=== PATIENT | female | born 1935 | race Caucasian/White ===

== ENCOUNTER 2020-03-10 08:42 | Inpatient (IN) | payer MEDICAID ==
[~2020-03-10] VITALS: Ht 152.4 cm; Wt 56.7 kg
[2020-03-10] MEDS ORDERED: SODIUM CHLORIDE 0.9% 1000ML BAG (SEPSIS BOLUS) IV ONE (09:45)
[2020-03-10] MEDS ORDERED: VANCOMYCIN 1 G PREMIX 200 ML IV ONE (09:45)
[2020-03-10] MEDS ORDERED: PIPERACILLIN/TAZ 3.375G PREMIX 50 ML IV ONE (09:45)
[2020-03-10 10:26] LABS: HEMATOCRIT. 43.9 % (36.0-48.0); HEMOGLOBIN. 14.3 g/dL (12.0-16.0); MEAN CORPUSCULAR HEMOGLOBIN 29.6 pg (28.0-32.0); MEAN CORPUSCULAR VOLUME 90.9 fL (81.0-99.0); MEAN PLATELET VOLUME 11.4 fl (7.4-10.4); PLATELET 431 x1000/uL (130-400); RED BLOOD CELL COUNT 4.84 mill/uL (4.2-5.4); RED CELL DISTRIBUTION WIDTH 15.2 % (11.6-14.6)
[2020-03-10 10:34] LABS: CHLORIDE 128 mEq/L (98-107); INR 1.2; PROTHROMBIN TIME 12.5 sec (9.6-11.0)
[2020-03-10 10:43] LABS: PLATELET ESTIMATE SLIGHTLY INCREASED
[2020-03-10] MEDS ORDERED: SODIUM CHLORIDE 0.9% 1,000 ML IV ONE (12:30)
[2020-03-10 12:57] LABS: CLARITY URINE TURBID (CLEAR); COLOR URINE DARK YELLOW (YELLOW); KETONES URINE TRACE (NEGATIVE); LEUKOCYTE ESTERASE URINE TRACE (NEGATIVE); NITRITE URINE NEGATIVE (NEGATIVE); OCCULT BLOOD URINE NEGATIVE (NEGATIVE); PROTEIN URINE 1+ (NEGATIVE); SPECIFIC GRAVITY URINE 1.024 (1.005-1.030)
[2020-03-10] MEDS: SODIUM CHLORIDE 0.45% 1,000 ML IV SCH (17:29)
[2020-03-10] MEDS ORDERED: ACETAMINOPHEN 325MG TABLET PO PRN ×2 (20:30)
[2020-03-10] MEDS ORDERED: DIPHENHYDRAMINE 50MG/ML VIAL IV PRN (20:30)
[2020-03-10] MEDS ORDERED: ONDANSETRON HCL 4MG/2ML INJ IV PRN (20:30)
[2020-03-10 23:15] VITALS: BP 95/43
[2020-03-11 00:45] VITALS: BP 95/43
[2020-03-11] MEDS: SODIUM CHLORIDE 0.45% 1,000 ML IV SCH (01:50)
[2020-03-11 04:00] VITALS: BP 114/53
[2020-03-11] MEDS: DEXTROSE 5% WATER 1,000 ML IV SCH ×2 (06:22→15:35)
[2020-03-11] MEDS ORDERED: DEXTROSE 50% WATER 50ML SYRINGE IV PRN (07:00)
[2020-03-11 08:00] VITALS: BP 118/45
[2020-03-11] MEDS: POTASSIUM CHLORIDE 20MEQ/PACKET PO NR ×2 (08:00→10:11)
[2020-03-11] MEDS: ENOXAPARIN 30MG/0.3ML SYR SUBCUT SCH (09:38)
[2020-03-11 12:00] VITALS: BP 105/37
[2020-03-11] MEDS: INSULIN LISPRO 100 UNITS/ML SUBCUT SCH ×3 (12:10→21:00)
[2020-03-11] MEDS: BLOOD SUGAR DIAGNOSTIC STRIP TEST SCH ×2 (12:58→17:42)
[2020-03-11 16:00] VITALS: BP 117/37
[2020-03-11] MEDS ORDERED: LEVOFLOXACIN 250MG PREMIX 50 ML IV SCH (16:00)
[2020-03-11] MEDS: VANCOMYCIN 500 MG PREMIX 100 ML IV SCH ×2 (17:29→18:00)
[2020-03-11] MEDS ORDERED: CEFTRIAXONE 1 G PREMIX 50 ML IV SCH (18:00)
[2020-03-11 20:00] VITALS: BP 110/53
[2020-03-12] VITALS: BP 120/62
[2020-03-12] MEDS: DEXTROSE 5% WATER 1,000 ML IV SCH ×3 (02:00→23:08)
[2020-03-12 04:00] VITALS: BP 115/44
[2020-03-12] MEDS: BLOOD SUGAR DIAGNOSTIC STRIP TEST SCH ×5 (06:00→23:06)
[2020-03-12] MEDS: INSULIN LISPRO 100 UNITS/ML SUBCUT SCH ×4 (07:02→21:00)
[2020-03-12 07:26] LABS: HEMATOCRIT. 35.4 % (36.0-48.0); HEMOGLOBIN. 11.6 g/dL (12.0-16.0); RED BLOOD CELL COUNT 3.89 mill/uL (4.2-5.4); RED CELL DISTRIBUTION WIDTH 14.9 % (11.6-14.6)
[2020-03-12 08:00] VITALS: BP 108/59
[2020-03-12] MEDS: ENOXAPARIN 30MG/0.3ML SYR SUBCUT SCH (08:50)
[2020-03-12 09:48] LABS: NUCLEATED RED BLOOD CELLS 2 /100 WBC
[2020-03-12] MEDS ORDERED: POTASSIUM CHLORIDE INJ 40 MEQ in DEXT 5% WATER 250 ML IV SCH (11:30)
[2020-03-12 12:00] VITALS: BP 100/46
[2020-03-12] MEDS: VANCOMYCIN 500 MG PREMIX 100 ML IV SCH (14:12)
[2020-03-12 16:00] VITALS: BP 104/49
[2020-03-12 17:31] LABS: COVID-19 PCR RNA DETECTED
[2020-03-12 17:39] LABS: COVID-19 PCR RNA DETECTED
[2020-03-12] MEDS: MEROPENEM 1,000 MG in SODIUM CHLORIDE 0.9% 100 ML IV SCH (19:02)
[2020-03-12 20:00] VITALS: BP 136/76
[2020-03-13] VITALS: BP 104/50
[2020-03-13] MEDS: DEXTROSE 5% WATER 1,000 ML IV SCH ×2 (04:28→22:55)
[2020-03-13] MEDS: MEROPENEM 1,000 MG in SODIUM CHLORIDE 0.9% 100 ML IV SCH (05:36)
[2020-03-13] MEDS: VANCOMYCIN 500 MG PREMIX 100 ML IV SCH (05:37)
[2020-03-13] MEDS: BLOOD SUGAR DIAGNOSTIC STRIP TEST SCH ×4 (06:39→23:58)
[2020-03-13] MEDS: INSULIN LISPRO 100 UNITS/ML SUBCUT SCH ×4 (06:39→21:00)
[2020-03-13 07:03] VITALS: BP 109/67
[2020-03-13 07:41] LABS: CHLORIDE 135 mEq/L (98-107)
[2020-03-13] MEDS: ENOXAPARIN 30MG/0.3ML SYR SUBCUT SCH (08:58)
[2020-03-13] MEDS ORDERED: POTASSIUM CHLORIDE INJ 40 MEQ in DEXT 5% WATER 500 ML IV ONE (09:45)
[2020-03-13] MEDS ORDERED: POTASSIUM CHLORIDE INJ 40 MEQ in DEXT 5% WATER 500 ML IV SCH (11:00)
[2020-03-13 11:50] LABS: PHOSPHORUS 1.5 mg/dL (2.5-4.9)
[2020-03-13 12:00] VITALS: BP 119/59
[2020-03-13 16:00] VITALS: BP 104/57
[2020-03-13] MEDS: MEROPENEM-0.9% SODIUM CHLORIDE 50 ML IV SCH (18:07)
[2020-03-13] MEDS ORDERED: SODIUM PHOS,M-BASIC-D-BASIC 30 MM in DEXT 5% WATER 500 ML IV ONE (18:45)
[2020-03-13 20:00] VITALS: BP 105/47
[2020-03-13] MEDS ORDERED: POTASSIUM PHOS,M-BASIC-D-BASIC 30 MMOL in DEXT 5% WATER 500 ML IV SCH (20:00)
[2020-03-13] MEDS ORDERED: HYDROXYCHLOROQUINE SULFATE 200MG TABLET PO SCH (22:15)
[2020-03-14] VITALS: BP 124/66
[2020-03-14] MEDS: DEXTROSE 5% WATER 1,000 ML IV SCH ×2 (04:28→11:18)
[2020-03-14] MEDS: MEROPENEM-0.9% SODIUM CHLORIDE 50 ML IV SCH (04:46)
[2020-03-14] MEDS: BLOOD SUGAR DIAGNOSTIC STRIP TEST SCH ×3 (05:59→18:11)
[2020-03-14] MEDS: INSULIN LISPRO 100 UNITS/ML SUBCUT SCH ×4 (05:59→21:00)
[2020-03-14 07:19] LABS: BASOPHILS % 0.2 % (0.0-2.0); EOSINOPHILS % 1.7 % (0.0-5.0); HEMATOCRIT. 31.8 % (36.0-48.0); HEMOGLOBIN. 10.4 g/dL (12.0-16.0); LYMPHOCYTES % 13.2 % (20.0-50.0); MEAN CORPUSCULAR HEMOGLOBIN 29.7 pg (28.0-32.0); MEAN CORPUSCULAR VOLUME 91.1 fL (81.0-99.0); MEAN PLATELET VOLUME 11.4 fl (7.4-10.4); NEUTROPHILS % 76.9 % (40.0-76.0); PLATELET 219 x1000/uL (130-400); RED BLOOD CELL COUNT 3.49 mill/uL (4.2-5.4); RED CELL DISTRIBUTION WIDTH 14.7 % (11.6-14.6)
[2020-03-14 08:00] VITALS: BP 113/56
[2020-03-14 08:26] LABS: CHLORIDE 127 mEq/L (98-107)
[2020-03-14 08:37] LABS: PHOSPHORUS 4.3 mg/dL (2.5-4.9)
[2020-03-14] MEDS ORDERED: HYDROXYCHLOROQUINE SULFATE 200MG TABLET PO SCH (10:40)
[2020-03-14] MEDS: ENOXAPARIN 30MG/0.3ML SYR SUBCUT SCH (10:46)
[2020-03-14] MEDS: ACETAMINOPHEN 650MG SUPP PR PRN ×3 (11:17→23:55)
[2020-03-14 12:00] VITALS: BP 98/49
[2020-03-14 16:00] VITALS: BP 121/63
[2020-03-14] MEDS: MEROPENEM 500 MG in SODIUM CHLORIDE 0.9% 50 ML IV SCH (18:17)
[2020-03-14 20:00] VITALS: BP 98/62
[2020-03-14] MEDS: ASCORBIC ACID 500 MG TABLET PO SCH (20:00)
[2020-03-14] MEDS: THIAMINE HCL 100MG TABLET PO SCH (20:00)
[2020-03-14] MEDS: ZINC SULFATE 220 MG ( 50 ) CAPSULE PO SCH (20:00)
[2020-03-14] MEDS: HYDROXYCHLOROQUINE SULFATE 200MG TABLET PO SCH (21:00)
[2020-03-15] VITALS: BP 114/66
[2020-03-15] MEDS: BLOOD SUGAR DIAGNOSTIC STRIP TEST SCH ×5 (00:28→23:40)
[2020-03-15] MEDS: MEROPENEM 500 MG in SODIUM CHLORIDE 0.9% 50 ML IV SCH ×3 (01:21→17:45)
[2020-03-15] MEDS: DEXTROSE 5% WATER 1,000 ML IV SCH ×3 (01:22→22:11)
[2020-03-15 04:00] VITALS: BP 105/52
[2020-03-15] MEDS: INSULIN LISPRO 100 UNITS/ML SUBCUT SCH ×4 (06:31→21:00)
[2020-03-15 08:00] VITALS: BP 125/52
[2020-03-15] MEDS: ASCORBIC ACID 500 MG TABLET PO SCH ×2 (11:10→17:45)
[2020-03-15] MEDS: HYDROXYCHLOROQUINE SULFATE 200MG TABLET PO SCH ×2 (11:11→21:50)
[2020-03-15] MEDS: ENOXAPARIN 30MG/0.3ML SYR SUBCUT SCH (11:11)
[2020-03-15] MEDS: ZINC SULFATE 220 MG ( 50 ) CAPSULE PO SCH (11:11)
[2020-03-15] MEDS: THIAMINE HCL 100MG TABLET PO SCH ×2 (11:12→17:45)
[2020-03-15 12:00] VITALS: BP 101/51
[2020-03-15 13:31] LABS: BASOPHILS % 0.3 % (0.0-2.0); EOSINOPHILS % 2.8 % (0.0-5.0); HEMATOCRIT. 32.7 % (36.0-48.0); HEMOGLOBIN. 10.8 g/dL (12.0-16.0); LYMPHOCYTES % 11.2 % (20.0-50.0); MEAN CORPUSCULAR HEMOGLOBIN 29.7 pg (28.0-32.0); MEAN CORPUSCULAR VOLUME 90.1 fL (81.0-99.0); MEAN PLATELET VOLUME 10.8 fl (7.4-10.4); MONOCYTES % 5.4 % (2.0-8.0); NEUTROPHILS % 80.3 % (40.0-76.0); PLATELET 259 x1000/uL (130-400); RED BLOOD CELL COUNT 3.63 mill/uL (4.2-5.4); RED CELL DISTRIBUTION WIDTH 14.7 % (11.6-14.6)
[2020-03-15 13:34] LABS: CHLORIDE 114 mEq/L (98-107)
[2020-03-15 16:00] VITALS: BP 115/60
[2020-03-15] MEDS ORDERED: POTASSIUM CHLORIDE 20MEQ/PACKET NG NR (16:30)
[2020-03-15 20:00] VITALS: BP 122/59
[2020-03-15] MEDS: ACETAMINOPHEN 650MG SUPP PR PRN (23:40)
[2020-03-16] VITALS: BP 124/53
[2020-03-16] MEDS: MEROPENEM 500 MG in SODIUM CHLORIDE 0.9% 50 ML IV SCH ×3 (01:09→17:13)
[2020-03-16 04:00] VITALS: BP 144/62
[2020-03-16 05:56] LABS: CHLORIDE 116 mEq/L (98-107)
[2020-03-16] MEDS: BLOOD SUGAR DIAGNOSTIC STRIP TEST SCH ×4 (06:00→21:00)
[2020-03-16 06:14] LABS: BASOPHILS % 0.2 % (0.0-2.0); EOSINOPHILS % 2.1 % (0.0-5.0); HEMATOCRIT. 32.2 % (36.0-48.0); HEMOGLOBIN. 10.5 g/dL (12.0-16.0); LYMPHOCYTES % 20.5 % (20.0-50.0); MEAN CORPUSCULAR HEMOGLOBIN 29.9 pg (28.0-32.0); MEAN CORPUSCULAR VOLUME 91.2 fL (81.0-99.0); MEAN PLATELET VOLUME 11.3 fl (7.4-10.4); MONOCYTES % 6.9 % (2.0-8.0); NEUTROPHILS % 70.3 % (40.0-76.0); PLATELET 206 x1000/uL (130-400); RED BLOOD CELL COUNT 3.53 mill/uL (4.2-5.4); RED CELL DISTRIBUTION WIDTH 14.6 % (11.6-14.6)
[2020-03-16] MEDS: INSULIN LISPRO 100 UNITS/ML SUBCUT SCH ×4 (07:10→21:00)
[2020-03-16 08:00] VITALS: BP 102/53
[2020-03-16] MEDS: THIAMINE HCL 100MG TABLET PO SCH ×2 (10:34→17:12)
[2020-03-16] MEDS: ZINC SULFATE 220 MG ( 50 ) CAPSULE PO SCH (10:38)
[2020-03-16] MEDS: ASCORBIC ACID 500 MG TABLET PO SCH ×2 (10:38→17:12)
[2020-03-16] MEDS: ENOXAPARIN 30MG/0.3ML SYR SUBCUT SCH (10:39)
[2020-03-16] MEDS: HYDROXYCHLOROQUINE SULFATE 200MG TABLET PO SCH (10:39)
[2020-03-16 13:00] VITALS: BP 106/56
[2020-03-16 16:00] VITALS: BP 103/58
[2020-03-16] MEDS: ACETAMINOPHEN 650MG SUPP PR PRN (17:13)
[2020-03-16 20:00] VITALS: BP 107/58
[2020-03-17] VITALS: BP 95/49
[2020-03-17] MEDS: MEROPENEM 500 MG in SODIUM CHLORIDE 0.9% 50 ML IV SCH ×3 (02:29→17:10)
[2020-03-17 04:00] VITALS: BP 110/59
[2020-03-17] MEDS: BLOOD SUGAR DIAGNOSTIC STRIP TEST SCH ×3 (05:52→17:05)
[2020-03-17] MEDS: INSULIN LISPRO 100 UNITS/ML SUBCUT SCH ×4 (05:52→21:00)
[2020-03-17 08:00] VITALS: BP 112/51
[2020-03-17] MEDS: ENOXAPARIN 30MG/0.3ML SYR SUBCUT SCH (09:02)
[2020-03-17] MEDS: ZINC SULFATE 220 MG ( 50 ) CAPSULE PO SCH (09:03)
[2020-03-17] MEDS: THIAMINE HCL 100MG TABLET PO SCH ×2 (09:03→16:30)
[2020-03-17] MEDS: ASCORBIC ACID 500 MG TABLET PO SCH ×2 (09:03→16:30)
[2020-03-17 12:00] VITALS: BP 114/52
[2020-03-17 16:00] VITALS: BP 124/79
[2020-03-17 20:25] VITALS: BP 121/51
[2020-03-18 00:46] VITALS: BP 110/55
[2020-03-18] MEDS: MEROPENEM 500 MG in SODIUM CHLORIDE 0.9% 50 ML IV SCH ×3 (02:18→17:31)
[2020-03-18 04:00] VITALS: BP 117/51
[2020-03-18] MEDS: BLOOD SUGAR DIAGNOSTIC STRIP TEST SCH ×4 (06:00→17:21)
[2020-03-18] MEDS: INSULIN LISPRO 100 UNITS/ML SUBCUT SCH ×4 (07:10→21:00)
[2020-03-18 08:00] VITALS: BP 123/55
[2020-03-18] MEDS: ZINC SULFATE 220 MG ( 50 ) CAPSULE PO SCH (09:38)
[2020-03-18] MEDS: ASCORBIC ACID 500 MG TABLET PO SCH ×2 (09:38→17:32)
[2020-03-18] MEDS: THIAMINE HCL 100MG TABLET PO SCH ×2 (09:38→17:32)
[2020-03-18] MEDS: ENOXAPARIN 30MG/0.3ML SYR SUBCUT SCH (10:14)
[2020-03-18 12:00] VITALS: BP 119/52
[2020-03-18] MEDS: ACETAMINOPHEN 650MG SUPP PR PRN (12:25)
[2020-03-18 16:00] VITALS: BP 129/56
[2020-03-18 20:00] VITALS: BP 92/59
[2020-03-19] VITALS (7 sets, daily range): BP systolic 90–147; BP diastolic 47–68
[2020-03-19] MEDS: BLOOD SUGAR DIAGNOSTIC STRIP TEST SCH ×5 (00:17→21:04)
[2020-03-19] MEDS: ACETAMINOPHEN 650MG SUPP PR PRN ×3 (00:34→17:25)
[2020-03-19] MEDS: MEROPENEM 500 MG in SODIUM CHLORIDE 0.9% 50 ML IV SCH ×3 (00:35→17:24)
[2020-03-19] MEDS: INSULIN LISPRO 100 UNITS/ML SUBCUT SCH ×4 (07:10→21:00)
[2020-03-19 07:52] LABS: BASOPHILS % 0.3 % (0.0-2.0); EOSINOPHILS % 1.3 % (0.0-5.0); HEMATOCRIT. 28.5 % (36.0-48.0); HEMOGLOBIN. 9.5 g/dL (12.0-16.0); LYMPHOCYTES % 9.9 % (20.0-50.0); MEAN CORPUSCULAR HEMOGLOBIN 29.7 pg (28.0-32.0); MEAN CORPUSCULAR VOLUME 88.8 fL (81.0-99.0); MEAN PLATELET VOLUME 9.5 fl (7.4-10.4); MONOCYTES % 3.7 % (2.0-8.0); NEUTROPHILS % 84.8 % (40.0-76.0); PLATELET 403 x1000/uL (130-400); RED BLOOD CELL COUNT 3.21 mill/uL (4.2-5.4); RED CELL DISTRIBUTION WIDTH 14.6 % (11.6-14.6)
[2020-03-19 07:56] LABS: CHLORIDE 111 mEq/L (98-107)
[2020-03-19] MEDS: ZINC SULFATE 220 MG ( 50 ) CAPSULE PO SCH (09:18)
[2020-03-19] MEDS: ASCORBIC ACID 500 MG TABLET PO SCH ×2 (09:18→17:24)
[2020-03-19] MEDS: THIAMINE HCL 100MG TABLET PO SCH ×2 (09:18→17:24)
[2020-03-19] MEDS: ENOXAPARIN 30MG/0.3ML SYR SUBCUT SCH (12:42)
[2020-03-20] VITALS: BP 109/56
[2020-03-20 04:00] VITALS: BP 129/60
[2020-03-20] MEDS: INSULIN LISPRO 100 UNITS/ML SUBCUT SCH ×2 (05:23→11:32)
[2020-03-20] MEDS: BLOOD SUGAR DIAGNOSTIC STRIP TEST SCH ×2 (05:23→11:32)
[2020-03-20 08:00] VITALS: BP 101/56
[2020-03-20] MEDS: THIAMINE HCL 100MG TABLET PO SCH (09:11)
[2020-03-20] MEDS: ACETAMINOPHEN 650MG SUPP PR PRN (09:11)
[2020-03-20] MEDS: ASCORBIC ACID 500 MG TABLET PO SCH (09:11)
[2020-03-20] MEDS: ZINC SULFATE 220 MG ( 50 ) CAPSULE PO SCH (09:11)
[2020-03-20] MEDS: ENOXAPARIN 30MG/0.3ML SYR SUBCUT SCH (09:12)
[2020-03-20 12:00] VITALS: BP 117/49
[2020-03-20] MEDS ORDERED: HALOPERIDOL LACTATE 5MG/ML VIAL IM PRN (12:00)
[2020-03-20] MEDS ORDERED: LORAZEPAM 2MG/ML CPJ IV PRN (12:00)
[2020-03-20 16:00] VITALS: BP 107/65
[2020-03-20] MEDS: ACETAMINOPHEN 650MG/20.3ML UDC NG PRN (16:44)
[2020-03-20 20:00] VITALS: BP 118/59
[2020-03-21] VITALS (7 sets, daily range): BP systolic 92–121; BP diastolic 42–61
[2020-03-21] MEDS: ACETAMINOPHEN 650MG/20.3ML UDC NG PRN (03:53)
[2020-03-21] MEDS: MORPHINE SULFATE 250 MG in DEXT 5% WATER 240 ML IV PRN (11:03)
[2020-03-22] VITALS: BP 96/40
[2020-03-22] MEDS: MORPHINE SULFATE 250 MG in DEXT 5% WATER 240 ML IV PRN (01:02)
[2020-03-22 04:00] VITALS: BP 97/43
[2020-03-22] MEDS ORDERED: ACETAMINOPHEN 650MG SUPP PR SCH (07:00)
[2020-03-22 08:00] VITALS: BP 90/42
== END 2020-03-22 11:57 | disposition expired | DRG 720 ==
LOC: ER 09:17 → 7EST 12:33 → EDBEDREQ 12:54 → EDBEDREQSVC 14:14 → ENRESERV 21:07 → 7EST 03-15 14:38
PROVIDERS: ADMIT Internal Medicine; ATTEND Internal Medicine
DX: A41.51 Sepsis due to Escherichia coli [E. coli] (principal); U07.1 COVID-19; E43 Unspecified severe protein-calorie malnutrition; J96.01 Acute respiratory failure with hypoxia; R65.21 Severe sepsis with septic shock; N17.9 Acute kidney failure, unspecified; G93.40 Encephalopathy, unspecified; G20 Parkinson's disease; E11.22 Type 2 diabetes mellitus with diabetic chronic kidney disease; A41.89 Other specified sepsis; J12.89 Other viral pneumonia; E87.0 Hyperosmolality and hypernatremia; D72.810 Lymphocytopenia; E87.2 Acidosis; E87.6 Hypokalemia; N39.0 Urinary tract infection, site not specified; E86.0 Dehydration; E83.39 Other disorders of phosphorus metabolism; E86.1 Hypovolemia; N18.9 Chronic kidney disease, unspecified; Z16.12 Extended spectrum beta lactamase (ESBL) resistance; Z51.5 Encounter for palliative care; Z66 Do not resuscitate; E86.9 Volume depletion, unspecified; F02.80 Dementia in other diseases classified elsewhere, unspecified severity, without behavioral disturbance, psychotic disturbance, mood disturbance, and anxiety; R62.7 Adult failure to thrive; Z86.73 Personal history of transient ischemic attack (TIA), and cerebral infarction without residual deficits; Z68.24 Body mass index [BMI] 24.0-24.9, adult
CPT/HCPCS: 36415; 71045; 80048; 80053; 80202; 81003; 82270; 82728; 82962; 83036; 83605; 83615; 83735; 84100; 84145; 84484; 85025; 87077; 87186; 87493; 87804; 93005; 99291; J0696; J1650; J1956; J2185; J2274; J2543; J3370; J3480; J3490; J7030; J7050; J7060; J7070